=== PATIENT | female | born 1965 | race Caucasian/White ===

== ENCOUNTER 2022-06-27 00:52 | Day surgery (SDC) | payer OTHER, SELFPAY ==
[2022-06-20 14:18] VITALS: BMI 30.7
--- NOTE | 2022-06-20 14:19 | PC.NURSE ---
Report to the Outpatient Waiting Room, entrance under the green pavilion located off [facility], at time _1000_ on date _[id number]_. Planned Procedure Time: _1200_. Time changes happen often and if your time is changed the preop area will call you the afternoon before. - You and your visitor will be asked to self-screen and do not enter if you have any COVID symptoms. - Only one visitor is requested with a max of two and NO children visitors are allowed at this time. - The patient visitor may be requested to leave or wait in car when not with patient due to distancing restrictions. - A mask is optional within the hospital at this time. Patients may have clear liquids (water, carbonated beverages, clear teas, apple juice) until 3 hours prior to surgery with a maximum of 20 ounces. - No food from midnight until time of surgery Take the following medications with a SIP of water the morning of surgery: ____Levothyroxine DO NOT STOP ANY OF YOUR OTHER PRESCRIPTION MEDICATIONS PRIOR TO SURGERY ?EXCEPT THE FOLLOWING Medications to discontinue per physician All vitamins and supplements. Date to take last [id number] Please no make-up, nail israeli, hairspray, perfume, deodorant, or body powder the day of surgery. No jewelry (including any body piercings) or valuables the day of surgery, leave them at home. Please take a shower or bath the night before, or the morning of, surgery with an antibacterial soap. Wear comfortable, loose fitting clothing. - Jewelry must be removed prior to entering the operating room. Rings and piercings that are not removed may be cut off. - The hospital will not accept responsibility for valuables. - Please leave all valuables, including medications, at home the day of surgery. If you are going home after surgery, a licensed day haul or farm charter bus driver must drive you home. - NO public transportation without another adult if you receive anesthesia. - We recommend that an adult stay with you for 24 hours following discharge. - We also recommend that you do not drive, make important decision, drink alcoholic beverages, or take any drugs that were not prescribed by your health care provider for at least 24 hours after your discharge time. Follow any additional instructions given to you from your surgeon. If you or anyone in your household have experienced Covid symptoms in the past week, please notify your surgeon or the nurse liaison at the phone number below for possible testing. Telephone instructions given to _Patient__and asked if any additional questions and then verbalized understanding. Patient advised to call surgeon office or pre surgery nurse liaison [phone] if any additional questions.
--- NOTE | 2022-06-24 08:10 | P.HP_ITS ---
H&P: HPI History of Present Illness Date/Time: 06/24/22 08:10 Chief Complaint: pelvic organ prolapse Narrative: she has a symptomatic vaginal bulge. She does not have stress incontinence. She has had a previous stress incontinence procedure. She has adequate apical support. She would like surgical correction for her prolapse Review of Systems Review of Systems: All systems reviewed & are unremarkable except as noted in HPI and below PMFSH Social History Social History Smoking status: Never smoker Tobacco type: cigarettes Alcohol intake: current Drinks per week: 2 Living arrangements: with family Spiritual care concerns: No Meds Home Medications and Allergies Home Medications Medication Instructions Recorded Confirmed Type ascorbic acid (vitamin C) 1,000 mg 1 g PO DAILY 06/20/22 06/20/22 History tablet (Vitamin C) biotin 5,000 mcg sublingual tablet 5,000 mcg sublingual DAILY 06/20/22 06/20/22 History cetirizine 10 mg capsule (Zyrtec) 10 mg PO DAILY 06/20/22 06/20/22 History cranberry 1,000 mg capsule 1,000 mg PO DAILY 06/20/22 06/20/22 History ergocalciferol (vitamin D2) 1,250 1,250 mcg PO WEEKLY 06/20/22 06/20/22 History mcg (50,000 unit) capsule levothyroxine 88 mcg tablet 88 mcg PO DAILY 06/20/22 06/20/22 History omeprazole 40 mg capsule,delayed 40 mg PO DAILY 06/20/22 06/20/22 History release zinc 25 mg tablet 25 mg PO DAILY 06/20/22 06/20/22 History Allergies Allergy/AdvReac Type Severity Reaction Status Date / Time Sulfa (Sulfonamide Allergy Mild Itching Verified 06/20/22 14:02 Antibiotics) Exam Narrative: no acute distress normal breathing alert orient x3 anterior wall +1 to +2 apex -5 posterior wall to hymenal ring or just beyond Assessment and Plan Assessment and plan (1) Cystocele: Status: Acute (2) Rectocele: Code(s): N81.6 - Rectocele Status: Acute Plan plan for cystocele and rectocele repair. Understands risks of bleeding, infection, damage to the bowel or urinary tract, fistula formation, postoperative incontinence, dyspareunia. She also understands the risk of recurrence of prolapse especially with heavy lifting. On exam her apex has re asonable support so a colpopexy is not needed.
[2022-06-27] VITALS (8 sets, daily range): BP systolic 105–148; BP diastolic 44–99; PULSE 67–82; RESP 12–18; TEMP 36.3–36.4; O2SAT 98–100
--- NOTE | 2022-06-27 07:15 | WPDHPUPDATE1 ---
History and Physical Update Update Date/Time: 06/27/22 07:15 History and Physical has been reviewed, including an updated exam of the patient. There are NO changes in the patient's condition. Risks, benefits, and alternatives have been discussed and questions answered. Patient agrees to proceed with procedure.
[2022-06-27] MEDS: LACTATED RINGERS 1,000 ML 30 ML IV CONT (10:27)
--- NOTE | 2022-06-27 11:06 | P.PNAN_ITS ---
Anes - Initial Pre Proc Eval Procedure: Operation Date: 06/27/22 12:00 Proposed Procedures p Cystocele and Rectocele Repair - Joshua Taylor MD Date/Time: 06/27/22 11:06 Surgeon: Joshua Taylor MD Pre Op Diagnosis: cystocele and rectocele Patient Data Age: 57 Gender: F Height: 1.68 m Weight: 87.5 kg Last Vital Signs Temp 97.6 F 06/27/22 10:42 Pulse 68 06/27/22 10:42 Resp 16 06/27/22 10:42 BP 139/99 H 06/27/22 10:42 Pulse Ox 99 06/27/22 10:42 O2 Del Method Room Air 06/27/22 10:42 Allergies Allergy/AdvReac Type Severity Reaction Status Date / Time Sulfa (Sulfonamide Allergy Mild Itching Verified 06/20/22 14:02 Antibiotics) Home Medications Medication Instructions Recorded Confirmed Type ascorbic acid (vitamin C) 1,000 mg 1 g PO DAILY 06/20/22 06/20/22 History tablet (Vitamin C) biotin 5,000 mcg sublingual tablet 5,000 mcg sublingual DAILY 06/20/22 06/20/22 History cetirizine 10 mg capsule (Zyrtec) 10 mg PO DAILY 06/20/22 06/20/22 History cranberry 1,000 mg capsule 1,000 mg PO DAILY 06/20/22 06/20/22 History ergocalciferol (vitamin D2) 1,250 1,250 mcg PO WEEKLY 06/20/22 06/20/22 History mcg (50,000 unit) capsule levothyroxine 88 mcg tablet 88 mcg PO DAILY 06/20/22 06/20/22 History omeprazole 40 mg capsule,delayed 40 mg PO DAILY 06/20/22 06/20/22 History release zinc 25 mg tablet 25 mg PO DAILY 06/20/22 06/20/22 History Patient hx anesthesia problems: none Family hx anesthesia problems: none Results Review: All pre-operative results and documents have been reviewed as part of the pre- operative evaluation. [facility] Social History Social History Smoking status: Never smoker Tobacco type: cigarettes Alcohol intake: current Drinks per week: 2 Living arrangements: with family Spiritual care concerns: No Anes - Eval Final PreProcedure Day of Procedure 06/27/22 11:06 Patient weight: normal Heart: regular rate and rhythm and murmur Lungs: clear to auscultation Airway: Mallampati scale class II Neurological: alert and oriented Last oral intake: >/= 8 hours ASA classification: III Emergent: no Anesthetic plan: proceed Anesthesia type and monitoring: general LMA and standard monitoring Results Review: All pre-operative results and documents have been reviewed as part of the pre- operative evaluation. Informed Consent: The patient's anesthetic plan and its attendant risks and benefits were discussed with the patient/family/POA. Questions were solicited and answers provided to the satisfaction of the patient/family/POA.
[2022-06-27] MEDS: ceFAZolin 2 GM/D5W 50 ML 2 GM/50 ML BAG IVPB (11:12)
[2022-06-27] MEDS: BUPIVACAINE/EPINEPHRINE 0.25% 10 ML VIAL 60 ML INFILTRATE (11:47)
[2022-06-27] MEDS: KETOROLAC 30 MG/ML VIAL (*BKC) IV PUSH (12:09)
--- NOTE | 2022-06-27 12:30 | W.PM.PROC2 ---
Procedure Note - Detailed Date of Procedure 06/27/22 Pre-op Diagnosis cystocele and rectocele Post-op Diagnosis Same Procedure Performed Cystocele repair Rectocele repair Surgeon Joshua Taylor MD [employer] Anesthesia General Indications This is a woman with symptomatic prolapse. She has a cystocele and rectocele. She has good apical support. She is here today for a vaginal repair. She understands risks of bleeding, infection, dyspareunia, recurrence of prolapse, damage to bowel or bladder, voiding related dysfunction including incontinence and retention. She agrees to proceed Findings Cystocele and rectocele. Uncomplicated repair Description of Procedure She was correctly identified. Informed consent obtained. She from the operating room. She was given general anesthesia. She was placed in dorsal lithotomy position. She was prepped and draped in a sterile fashion. Time-out performed. I placed a [place] retractor. I placed Romero catheter. I noted a cystocele and rectocele. I 1st turned my attention towards rectocele. I grasped the rectocele with Allis clamps. I infiltrated subcutaneous tissues with local mixed with saline. I made a midline vaginal incision. I dissected the mucosa off the underlying fascial structures laterally and back to the apex. I took great care not to injure underlying organs or the rectum. I then performed standard plication rectocele repair. I used interrupted 0 Vicryl suture. To reduce the rectocele. I then trimmed excess found mucosa. I closed the vaginal mucosa with a running 2-0 Vicryl suture. There was excellent hemostasis and excellent reduction of the rectocele. I then turned my attention to her cystocele. I grasped the cystocele Allis clamps. I infiltrated subcutaneous tissues with local mixed with saline. I made a midline vaginal incision on the anterior wall. I dissected the mucosa off the underlying fascial structures laterally and back to the apex. I then performed a standard plication cystocele repair with several interrupted 0 Vicryl suture. I trimmed minimal excess vaginal mucosa. I closed the vaginal mucosa with a running 2-0 Vicryl suture. There was excellent reduction of the prolapse without undue narrowing of the vagina. There was excellent hemostasis. On cystoscopy she had mild trabeculations. No other bladder abnormalities. There is no surgical artifact or tumors in the bladder. Ureteral patency was documented bilaterally by placing guidewires up the ureters. Her bladder was emptied. Rectal exam confirmed no rectal injury. She was awakened transferred to PACU in stable condition Estimated Blood Loss -20.0 Drains No Packing No Pathology None sent Complications No immediate complications Condition Stable
[2022-06-27] MEDS: oxyCODONE HCL (*CRX) 5 MG TAB IR PO (13:37)
== END 2022-06-27 14:06 | disposition home or self-care (01) ==
PROVIDERS: PCP Nurse Practitioner Family; Visit Provider Urology
PROC: (CPT 57240; principal; 2022-06-27 12:00)
DX: N81.4 Uterovaginal prolapse, unspecified (principal)
CPT/HCPCS: 57260; A9270; C1758; C1769; J0690; J1100; J1885; J2250; J2405; J2704; J3010; J7030; J7120